=== PATIENT | female | born 1980 | race Caucasian/White ===

== ENCOUNTER 2017-08-31 21:40 | Emergency (ER) | payer SELFPAY ==
--- NOTE | 2017-08-31 22:42 | ED Physician Documentation ---
General Adult - HISTORIAN Historian: patient - HPI Stated Complaint: ear pain, muscle ache, diarrhea Chief Complaint: General Adult Onset: days ago (3) Timing: still present Severity: moderate Further Comments: yes (Pt is a 37 yo female) - ROS CONST: other (malaise) EYES/ENT: other (L ear pain) CVS/RESP: cough GI/: diarrhea MS/SKIN/LYMPH: none - PAST HX Past History: other (migraine headaches) Surgeries/Procedures: cholecystectomy, other (tonsillectomy) Allergies/Adverse Reactions: Allergies Allergy/AdvReac Type Severity Reaction Status Date / Time azithromycin Allergy Verified 08/31/17 22:24 [From Zithromax Z-Ferdinand] cephalexin monohydrate Allergy Verified 08/31/17 22:24 [From Keflex] ciprofloxacin [From Cipro] Allergy Verified 08/31/17 22:24 ciprofloxacin HCl Allergy Verified 08/31/17 22:24 [From Cipro] morphine Allergy Verified 08/31/17 22:24 Penicillins Allergy Verified 08/31/17 22:24 Home Medications: Ambulatory Orders Medication Instructions Recorded Butalbital/Aspirin/Caffeine 1 each PO DAILY 08/31/17 [Fiorinal 50-325-40 mg Capsule] - SOCIAL HX Smoking History: cigarettes - FAMILY HX Family History: No - REVIEWED ASSESSMENTS Nursing Assessment Reviewed: Yes Vitals Reviewed: Yes Progress - Progress Progress: Rx Bactrim DS. 1 po bid x 10 days. General Adult Physical Exam - PHYSICAL EXAM GENERAL APPEARANCE: mild distress EENT: pharynx normal, TM erythema (L) NECK: normal inspection, supple RESPIRATORY: no resp distress, chest non-tender, breath sounds normal CVS: reg rate & rhythm, heart sounds normal, equal pulses ABDOMEN: soft, no organomegaly, normal bowel sounds BACK: normal inspection, no CVA tenderness SKIN: warm/dry, normal color EXTREMITIES: non-tender, normal range of motion, no evidence of injury NEURO: oriented X3, motor nml, sensation nml Discharge Clincal Impression: URI Diarrhea Qualifiers: Diarrhea type: unspecified type Qualified Code(s): R19.7 - Diarrhea, unspecified Referrals: Primary Doctor,No [Primary Care Provider] - Condition: Stable Disposition: 01 HOME, SELF-CARE Decision to Admit: NO Decision Time: 22:43
[2017-08-31] MEDS ORDERED: SULFAMETHOXAZOLE/TRIMETHOPRIM 1 EACH TABLET PO ONE (22:48)
[2017-09-01 00:09] VITALS: BP 112/68
== END 2017-08-31 23:00 | disposition home or self-care (01) ==
LOC: ED 21:40
DX: J06.9 Acute upper respiratory infection, unspecified (principal); R19.7 Diarrhea, unspecified
CPT/HCPCS: 99282; A9270

== ENCOUNTER 2018-01-19 14:04 | Emergency (ER) | payer BC, OTHER ==
[2018-01-19 14:41] VITALS: BP 108/67
--- NOTE | 2018-01-19 14:49 | ED Physician Documentation ---
General Adult - HISTORIAN Historian: patient - HPI Stated Complaint: Nausea/Vomiting Chief Complaint: Nausea,Vomiting,Diarrhea Onset: other (on going ) Timing: better Severity: mild Further Comments: yes (she reports she chonically has some N/V/D and she is seeing a GI specialist for IBS> She was recently started on meds for this but "they just arent helping") Last known Well Code/Unknown Code: Unknown - ROS CONST: no problems GI/: nausea. denies: abdominal pain (cramps and pain have improved with meds ), vomiting, diarrhea MS/SKIN/LYMPH: denies: rash NEURO/PSYCH: denies: headache, dizziness - PAST HX Past History: other (IBS) Surgeries/Procedures: none Immunizations: UTD Allergies/Adverse Reactions: Allergies Allergy/AdvReac Type Severity Reaction Status Date / Time amoxicillin Allergy Verified 01/19/18 14:42 azithromycin Allergy Verified 08/31/17 22:24 [From Zithromax Z-Ferdinand] cephalexin monohydrate Allergy Verified 08/31/17 22:24 [From Keflex] ciprofloxacin [From Cipro] Allergy Verified 08/31/17 22:24 ciprofloxacin HCl Allergy Verified 08/31/17 22:24 [From Cipro] latex Allergy Verified 01/19/18 14:42 morphine Allergy Verified 08/31/17 22:24 Penicillins Allergy Verified 08/31/17 22:24 Home Medications: Ambulatory Orders Medication Instructions Recorded Dicyclomine HCl 10 mg PO 01/19/18 - SOCIAL HX Smoking History: non-smoker Alcohol Use: none Drug Use: none - FAMILY HX Family History: No - VITAL SIGNS Vital Signs: Vital Signs Temp Pulse Resp BP Pulse Ox 98.7 F 99 H 20 108/67 98 01/19/18 14:05 01/19/18 14:05 01/19/18 14:05 01/19/18 14:05 01/19/18 14:05 - REVIEWED ASSESSMENTS Nursing Assessment Reviewed: Yes Vitals Reviewed: Yes General Adult Physical Exam - PHYSICAL EXAM GENERAL APPEARANCE: no distress EENT: eye inspection normal, ENT inspection normal NECK: normal inspection RESPIRATORY: no resp distress, chest non-tender, breath sounds normal CVS: reg rate & rhythm, heart sounds normal, no murmur ABDOMEN: soft, no organomegaly, normal bowel sounds, no distension, non-tender SKIN: warm/dry, normal color EXTREMITIES: non-tender, normal range of motion, no evidence of injury, no edema NEURO: oriented X3, CN's nml as tested, motor nml, sensation nml, mood/affect nml, cognition normal Discharge Clincal Impression: Nausea Irritable bowel syndrome Qualifiers: Irritable bowel syndrome type: other Qualified Code(s): K58.8 - Other irritable bowel syndrome Referrals: Primary Doctor,No [Primary Care Provider] - 2 Days Additional Instructions: 1. continue meds from GI specialist 2. Increase fluids 3. [place] diet 4. Zofran 4 mg every 8 hours as needed for nausea 5. Follow up with specialist tomorrow about continued symptoms 6. Return to ER for concerns Condition: Stable Disposition: 01 HOME, SELF-CARE Decision to Admit: NO Date of Decison to Admit: 01/19/18 Decision Time: 15:21
[2018-01-19] MEDS ORDERED: ONDANSETRON HCL 4 MG TAB.RAPDIS PO ONE (14:57)
== END 2018-01-19 15:22 | disposition home or self-care (01) ==
LOC: ED 14:04
DX: K58.8 Other irritable bowel syndrome (principal); R11.0 Nausea
CPT/HCPCS: A9270

== ENCOUNTER 2019-06-16 15:48 | Emergency (ER) | payer OTHER ==
[2019-06-16] MEDS: ONDANSETRON HCL 4 MG TAB.RAPDIS PO ONE (16:31)
[2019-06-16 16:34] VITALS: BP 135/74
--- NOTE | 2019-06-16 17:18 | ED Physician Documentation ---
Nausea/Vomiting/Diarrhea - HISTORIAN Historian: patient - HPI Stated Complaint: nausea and vomiting Chief Complaint: Nausea,Vomiting,Diarrhea Additional Information: 38 year old female c/o n/v/d. She states that she has had 10 diarrhea stools and 10 vomiting episodes; VSS, no signs of dehydration. She does not feel that she should go to work and will be needing a work excuse. Onset: hours Duration: none Timing: gradual onset Context: denies: out of country travel, bad food Severity: mild - Associated Symptoms Vomiting: mild Diarrhea: mild Abdominal Pain: none - ROS CONST: none CVS/RESP: denies: chest pain, shortness of breath GI/: none EYES/ENT: none MS/SKIN/LYMPH: denies: joint pain NEURO/PSYCH: none - PAST HX Past History: other (IBS) Other History: other (depression, anxiey, bipolar) Surgeries/Procedures: cholecystectomy, other (tonsils & adenoids, umbilical hernia, right thumb) Immunizations: UTD Allergies/Adverse Reactions: Allergies Allergy/AdvReac Type Severity Reaction Status Date / Time amoxicillin Allergy Verified 06/16/19 16:20 azithromycin Allergy Verified 06/16/19 16:20 [From Zithromax Z-Ferdinand] cephalexin monohydrate Allergy Verified 06/16/19 16:20 [From Keflex] ciprofloxacin [From Cipro] Allergy Verified 06/16/19 16:20 ciprofloxacin HCl Allergy Verified 06/16/19 16:20 [From Cipro] latex Allergy Verified 06/16/19 16:20 morphine Allergy Verified 06/16/19 16:20 Penicillins Allergy Verified 06/16/19 16:20 Home Medications: Ambulatory Orders Medication Instructions Recorded Diazepam 30 mg PO DAILY 06/16/19 Promethazine HCl [Phenergan] 25 mg PO Q6 PRN #10 tablet 06/16/19 Sertraline HCl 150 mg PO DAILY 06/16/19 Trazodone HCl [Desyrel] 100 mg PO DAILY 06/16/19 - SOCIAL HX Smoking History: greater than 1 pack/day Alcohol Use: none Drug Use: none - FAMILY HX Family History: none - VITAL SIGNS Vital Signs: Vital Signs Temp Pulse Resp BP Pulse Ox 97.8 F 101 H 18 135/74 99 06/16/19 16:31 06/16/19 16:31 06/16/19 16:31 06/16/19 16:31 06/16/19 16:31 - REVIEWED ASSESSMENTS Nursing Assessment Reviewed: Yes Vitals Reviewed: Yes ED Results Lab/Radiology - Orders Orders: ED Orders Category Date Time Status Ondansetron HCl Rapdis [Zofran Odt] Med 06/16/19 16:28 Discontinued 4 mg PO NOW ONE Nausea Physical Exam - EXAM General Appearance: no acute distress, alert EENT: eye inspection normal, ENT inspection normal, pharynx normal, no signs of dehydration, DANIEL Neck: normal inspection, supple Respiratory: breath sounds normal CVS: heart sounds normal Abdomen: non-tender, no organomegaly Skin: warm/dry, normal color Extremities: non-tender, normal range of motion Neuro/Psych: oriented X3, CN's nml as tested, motor nml, sensation nml, mood/affect nml, cognition normal Discharge Clincal Impression: Nausea, Diarrhea Prescriptions: Promethazine HCl [Phenergan] 25 mg PO Q6 PRN #10 tablet PRN Reason: nausea and vomiting Referrals: Primary Doctor,No [Primary Care Provider] - 2 Days Additional Instructions: Take phenergan 25mg by mouth every 6 hours as needed for nausea Immodium as needed for diarrhea Sips of water and advance diet as tolerated Follow up with PCP Condition: Good Disposition: 01 HOME, SELF-CARE Decision to Admit: NO Decision Time: 17:20
== END 2019-06-16 17:00 | disposition home or self-care (01) ==
LOC: ED 15:48
DX: R11.0 Nausea (principal); R19.7 Diarrhea, unspecified
CPT/HCPCS: 99283; A9270

== ENCOUNTER 2019-07-17 18:52 | Emergency (ER) | payer OTHER ==
--- NOTE | 2019-07-17 19:05 | ED Physician Documentation ---
Abdominal Pain - HISTORIAN Historian: patient - HPI Stated Complaint: abdominal pain Chief Complaint: Abdominal Pain Additonal Information: Patient presents to ED with RLQ admoninal pain, nausea/vomiting, diarrhea since Saturday (3 days). She also reports low grade fever of 100.3. She has a history of IBS but states this pain is different. The pain is sharp stabbing, 10/10, worse with walking. Onset: days ago (3) Duration: none Timing: still present Context: denies: out of country travel, bad food Severity: severe Quality: sharp, stabbing Associated Symptoms: fever, nausea, vomiting, diarrhea Exacerbated by: walking Relieved by: nothing Further Comments: no - ROS CONST: no problems GI/: denies: bloody urine, bloody stools CVS/RESP: none EYES/ENT: none MS/SKIN/LYMPH: none NEURO/PSYCH: none - SOCIAL HX Smoking History: non-smoker Alcohol Use: none Drug Use: none - FAMILY HX Family History: no significant history - PAST HX Past History: none Ischemic Bowel Risk Factors: none Other History: none Surgeries/Procedures: cholecystectomy Home Medications: Ambulatory Orders Medication Instructions Recorded Diazepam 30 mg PO DAILY 06/16/19 Sertraline HCl 150 mg PO DAILY 06/16/19 Trazodone HCl [Desyrel] 100 mg PO DAILY 06/16/19 Promethazine HCl 25 mg RC Q6 #20 supp.rect 07/17/19 Allergies/Adverse Reactions: Allergies Allergy/AdvReac Type Severity Reaction Status Date / Time amoxicillin Allergy Verified 07/17/19 19:18 azithromycin Allergy Verified 07/17/19 19:18 [From Zithromax Z-Ferdinand] cephalexin monohydrate Allergy Verified 07/17/19 19:18 [From Keflex] ciprofloxacin [From Cipro] Allergy Verified 07/17/19 19:18 ciprofloxacin HCl Allergy Verified 07/17/19 19:18 [From Cipro] latex Allergy Verified 07/17/19 19:18 morphine Allergy Verified 07/17/19 19:18 Penicillins Allergy Verified 07/17/19 19:18 - VITAL SIGNS Vital Signs: Vital Signs Temp Pulse Resp BP Pulse Ox 99.3 F 88 18 108/68 98 07/17/19 18:52 07/17/19 18:52 07/17/19 18:52 07/17/19 18:52 07/17/19 18:52 - REVIEWED ASSESSMENTS Nursing Assessment Reviewed: Yes Vitals Reviewed: Yes ED Results Lab/Radiology - Lab Results Lab Results: Lab Results 07/17/19 07/17/19 19:00 19:00 WBC 8.30 K/ul K/ul (4.00-12.00) RBC 4.45 M/ul M/ul (3.90-5.20) Hgb 13.4 g/dL g/dL (11.5-16.0) Hct 39.5 % % (34.5-46.5) MCV 89.0 fl fl (80.0-100.0) MCH 30.1 pg pg (28.0-34.0) MCHC 34.0 g/dL g/dL (30.0-36.0) RDW 12.0 % % (11.3-14.3) Plt Count 364 K/mm3 K/mm3 (130-400) Neut # (Auto) Pending Lymph # (Auto) Pending [place] # (Auto) Pending Eos # (Auto) Pending Baso # (Auto) Pending Seg Neutrophils % Pending Sodium 141 mmol/L mmol/L (137-145) Potassium 3.6 mmol/L mmol/L (3.5-5.1) Chloride 106 mmol/L mmol/L (98-107) Carbon Dioxide 25 mmol/L mmol/L (22-30) Anion Gap 13.6 BUN 10 mg/dL mg/dL (7-17) Creatinine 0.76 mg/dL mg/dL (0.52-1.04) Estimated Creat Clear 152 Est GFR ( Amer) > 60 (60 - ) Est GFR (Non-Af Amer) > 60 (60 - ) Glucose 93 mg/dL mg/dL (74-106) Calcium 9.6 mg/dL mg/dL (8.4-10.2) Total Bilirubin 0.4 mg/dL mg/dL (0.2-1.3) AST 39 U/L U/L (15-46) ALT 18 U/L U/L (4-35) Alkaline Phosphatase 77 U/L U/L (38-126) Total Protein 7.7 g/dL g/dL (6.3-8.2) Albumin 4.5 g/dL g/dL (3.5-5.0) - Radiology Radiology Impressions: Report Submission Date: Jul 17, 2019 8:55:21 PM MANAGER RADIO Patient Study Name: SHERLYN ZAYAS Date: Jul 17, 2019 8:35:46 PM MANAGER RADIO Modality Type: CT\SR Gender: F Description: CT ABD PELVIS W/ CON : 84 Institution: [facility] Physician: KATIE BLANCO HISTORY: 39-year-old female with right lower quadrant abdominal pain for 2 days, history of umbilical hernia repair COMPARISON: None available. TECHNIQUE: Helical CT images of the abdomen and pelvis were performed with 90 ml Omnipaque 350 IV contrast. Sagittal and coronal reformatted images were obtained. FINDINGS: CT abdomen: The lung bases are clear. The liver measures 21 cm cephalocaudal and is likely diffusely fatty infiltrated. The gallbladder is surgically absent. The spleen, pancreas, kidneys, and adrenal glands are unremarkable. No abdominal aortic aneurysm. The left renal vein is retroaortic. CT pelvis: No abnormal bowel dilatation, free air, free fluid, or suspicious adenopathy. There is mild sigmoid colon diverticulosis without evidence of acute diverticulitis. The appendix and urinary bladder are normal in appearance. There is a lumbosacral transitional vertebrae. IMPRESSION: 1. Hepatomegaly and probable diffuse fatty infiltration of the liver. 2. Postoperative changes of cholecystectomy. 3. No evidence of bowel obstruction, acute appendicitis, or other acute process in the abdomen or pelvis. Electronically signed on Jul 17, 2019 8:55:21 PM MANAGER RADIO by: Zack Quiñonez - Orders Orders: ED Orders Category Date Time Status Place IV Lock 1T Care 07/17/19 19:[address] ABD & PELVIS W/ CON Stat Exams 07/17/19 Completed CBC/PLATELET/DIFF Routine Lab 07/17/19 19:00 Results CMP Routine Lab 07/17/19 19:00 Completed 0.9 % Sodium Chloride [Normal Saline] 1,000 ml Med 07/17/19 19:14 Discontinued IV Q1H Ketorolac Tromethamine [Toradol] Med 07/17/19 19:14 Discontinued 30 mg IV NOW ONE Ondansetron HCl/Pf [Zofran] Med 07/17/19 19:14 Discontinued 4 mg IVP NOW ONE Promethazine HCl [Phenergan] Med 07/17/19 20:26 Discontinued 25 mg IM ONCE ONE Abdominal Pain Physical Exam - Physical Exam General Appearance: no acute distress, alert EENT: DANIEL RESPIRATORY: no resp distress, breath sounds normal CVS: reg rate & rhythm, heart sounds normal ABDOMEN: soft, tenderness (RLQ) BACK: normal inspection SKIN: warm/dry, normal color EXTREMITIES: non-tender, normal range of motion, no evidence of injury NEURO: oriented X3 Vital Signs: Vital Signs Temp Pulse Resp BP Pulse Ox 99.3 F 88 18 108/68 98 07/17/19 18:52 07/17/19 18:52 07/17/19 18:52 07/17/19 18:52 07/17/19 18:52 Discharge Clincal Impression: Gastroenteritis Prescriptions: Promethazine HCl 25 mg RC Q6 #20 supp.rect Referrals: Primary Doctor,No [Primary Care Provider] - 2 Days Additional Instructions: 1. Promethazine every 6 hours as needed for nausea 2. Imodium as needed for diarrhea 3. Tylenol 650 mg every 4 hours and/or Ibuprofen 600mg every 6 hours as needed for pain/fever 4. Small sips of fluids every 15 minutes advance as tolerated 5. Follow up with PCP within 1 week 6. Return to ER for new or worsening symptoms Condition: Stable Disposition: 01 HOME, SELF-CARE Decision to Admit: NO Date of Decison to Admit: 07/17/19 Decision Time: 21:06
[2019-07-17] MEDS: KETOROLAC TROMETHAMINE 30 MG/1ML VIAL IV ONE (19:45)
[2019-07-17] MEDS: ONDANSETRON HCL/PF 4 MG/ 2ML VIAL IVP ONE (19:45)
[2019-07-17] MEDS: 0.9 % SODIUM CHLORIDE 1,000 ML IV ONE (20:01)
[2019-07-17 20:12] LABS: eGFR (Non-African) > 60
[2019-07-17] MEDS: PROMETHAZINE HCL 25 MG/ML VIAL IM ONE (20:55)
--- NOTE | 2019-07-17 21:00 | Diagnostic Imaging Report ---
PATIENT MR#: [id number] PATIENT PATIENT NAME: SHERLYN ZAYAS DATE OF : 1980 REFERRING PHYSICIAN: Becky Marx EXAM DATE: 07/17/2019 ACCESSION NUMBER: [id number] EXAM DESCRIPTION: CT ABD PELVIS W/ CON HISTORY: 39-year-old female with right lower quadrant abdominal pain for 2 days, history of umbilica l hernia repair COMPARISON: None available. TECHNIQUE: Helical CT images of the abdomen and pelvis were performed with 90 ml Omnipaque 350 IV co ntrast. Sagittal and coronal reformatted images were obtained. FINDINGS: CT abdomen: The lung bases are clear. The liver measures 21 cm cephalocaudal and is likely diffusel y fatty infiltrated. The gallbladder is surgically absent. The spleen, pancreas, kidneys, and adrenal gland s are unremarkable. No abdominal aortic aneurysm. The left renal vein is retroaortic. CT pelvis: No abnormal bowel dilatation, free air, free fluid, or suspicious adenopathy. There is m ild sigmoid colon diverticulosis without evidence of acute diverticulitis. The appendix and urinary bladder are normal in appearance. There is a lumbosacral transitional vertebrae. IMPRESSION: 1. Hepatomegaly and probable diffuse fatty infiltration of the liver. 2. Postoperative changes of cholecystectomy. 3. No evidence of bowel obstruction, acute appendicitis, or other acute process in the abdomen or pe lvis. Read by: Dr. Zack Quiñonez Transcribed by: Transcribed Date: Electronically signed by: Dr. Zack Quiñonez Date signed: 07/17/2019 8:59:15 PM
[2019-07-17 22:09] VITALS: BP 112/61
[2019-07-18 08:43] LABS: NEUTROPHILS # 4.5 # k/uL (1.4-7.7)
== END 2019-07-17 22:10 | disposition home or self-care (01) ==
LOC: ED 18:52
DX: K52.9 Noninfective gastroenteritis and colitis, unspecified (principal)
CPT/HCPCS: 74177; 80053; 85025; 96372; 96374; 96375; 99284; 99285; J1885; J2405; J2550; J7030; Q9967; S1016